=== PATIENT | male | born 1990 | race Caucasian/White ===

== ENCOUNTER 2020-03-29 13:25 | Emergency (ER) | payer BC, SELFPAY ==
[2020-03-29 13:41] VITALS: BP 130/75; PULSE 77; RESP 16; TEMP 36.9; O2SAT 100
--- NOTE | 2020-03-29 13:42 | ED.GENADULT ---
HPI - General Adult General Chief complaint: Eye Problems Stated complaint: swelling right eyelid Time Seen by Provider: 03/29/20 13:42 Source: patient and RN notes reviewed Mode of arrival: ambulatory Limitations: no limitations History of Present Illness HPI narrative: 29-year-old male presents with complaints of irritation, swelling, and redness to right upper eyelid for the past 2 days. No treatment. Increase swelling, redness, and irritation in the last 24 hours. Denies injury to RIGHT eye. No blurred vision, double vision, sensation of foreign body, or pain of eye with movement. [place] says his eye doctor was unable to evaluate him at this time. No drainage. Exacerbating factor consist of palpation of upper eyelid. Denies fever or chills. Tolerating po intake. Remains active. Denies headaches, weakness, fatigue, myalgia, or facial swelling. Denies chest pain or dyspnea. Denies cough, rhinorrhea, congestion, sore throat, nausea, vomiting, abdominal pain, and diarrhea. Tolerating po intake well. Denies recent traveling. Denies concerns for COVID-19 or exposures been home since [id number] order except for essential household needs, working, and return home. Some parts of this dictation were generated by voice recognition software and may contain typographical and/or grammatical inaccuracies. Related Data Home Medications Medication Instructions Recorded Confirmed cetirizine [Zyrtec] mg 03/29/20 Allergies Allergy/AdvReac Type Severity Reaction Status Date / Time No Known Allergies Allergy Verified 03/29/20 13:42 Review of Systems Review of Systems: Narrative: CONSTITUTIONAL: Denies fever, chills, sweats. EYES: Denies visual changes. Complains of RT upper eyelid with irritation, swelling, and redness. ENT: Denies rhinorrhea, congestion, sore throat, otalgia. CARDIOVASCULAR: Denies chest pain, palpitations, edema. RESPIRATORY: Denies dyspnea, wheezing, cough. GASTROINTESTINAL: Denies abdominal pain, nausea, vomiting, diarrhea. GENITOURINARY: Denies dysuria, hematuria, abnormal discharge. SKIN: Denies rash or itching. MUSCULOSKELETAL: Denies acute back pain, joint pain, or myalgia. NEUROLOGIC: Denies numbness or focal weakness. PSYCHIATRIC: Denies anxiety or depression. All systems reviewed and are unremarkable except as noted in HPI and below. FOR[facility], LATER [facility] Past Medical History Medical History (Updated 03/30/20 @ 00:00 by Ubaldo Kitchen) Allergies Surgical History Surgical History (Updated 03/29/20 @ 14:11 by MILKA Nick) History of nasal surgery Family History Family History (Updated 03/29/20 @ 14:13 by MILKA Nick) Father Hypertension Diabetes mellitus Mother Alive and well Sibling Multiple sclerosis Social History Social History (Updated 03/29/20 @ 14:11 by MILKA Nick) Smoking status: Never smoker Second hand tobacco smoke exposure: No Alcohol intake: current Substance use: never Living arrangements: with family Occupation/Education: occupation Gender identity (if verbalized by the patient): Male Comments At time of signature, I have reviewed and agree with nursing past medical, surgical, social, and family history. Please see nursing chart for further information. There is no relevant family history pertinent to the presenting complaint. Exam Narrative: Exam Narrative: GENERAL: This is a well-nourished, well-developed patient, in no apparent distress. Talks in full sentences and ambulates with steady gait without dyspnea. HEAD: normocephalic, atraumatic. EYES: Extraocular motions intact. PERRL. Sclera clear/white Bilaterally. No drainage. RT upper eyelid with mild-moderate swelling, erythema, tenderness on palpation. RT small internal Hordeolum @ 11 o'clock edge of upper eyelid. Vision is grossly intact. No drainable abscess. No foreign body or lesions were noted on eversion of upper eyelid. No concern for Saige-orbital cellul
== END 2020-03-29 14:06 | disposition home or self-care (01) ==
PROVIDERS: Emergency Provider Nurse Practitioner Family
DX: H00.021 Hordeolum internum right upper eyelid (principal)
CPT/HCPCS: 99213; G0463

== ENCOUNTER 2025-02-16 10:07 | Emergency (ER) | payer OTHER, SELFPAY ==
[2025-02-16] VITALS (8 sets, daily range): BP systolic 142; BP diastolic 79; PULSE 79–111; RESP 12–19; TEMP 36.2; O2SAT 96–99
--- NOTE | ~2025-02-16 | XR_ITS ---
CHEST RADIOGRAPH, PA AND LATERAL CLINICAL HISTORY: Cardiac arrhythmia . COMPARISON: None available TECHNIQUE: PA and lateral views of the chest. FINDINGS The cardiomediastinal silhouette is unremarkable. The lungs are clear. Visualized osseous structures and soft tissues are unremarkable. IMPRESSION: No focal infiltrate or effusion. Reviewed, dictated and finalized at location A.
--- NOTE | 2025-02-16 10:43 | ECG_ITS ---
Test Date: 2025-02-16 10:46:34 Measurements Intervals [place] Rate: 98 P: 59 OR: 132 QRS: 84 QRSD: 90 T: 39 QT: 311 QTc: 397 Interpretive Statements SINUS RHYTHM No previous ECG available for comparison Electronically Signed On 02-16-2025 13:36:04 CDT by Marichuy Howard M.D.
--- NOTE | 2025-02-16 11:16 | ED.GENADULT ---
HPI - General Adult General Chief complaint: Arrhythmia/Palpitations Stated complaint: palpatations Time Seen by Provider: 02/16/25 10:49 History of Present Illness HPI narrative: 34-year-old male presenting to the emergency department for evaluation for heart palpitations. Patient states intermittently he has been having heart palpitations at night. He states that he sometimes feels he is having a skipped heartbeat. Patient denies any significant past medical history. Patient denies history of coronary disease. Patient does not drink excessive amounts of caffeine. Patient denies any prior history of arrhythmia. Patient states he does not feel excessively stressed. Related Data Home Medications ?Medication ?Instructions ?Recorded ?Confirmed ?Last Taken ?Type cetirizine 10 mg tablet (Zyrtec) mg 03/29/20 Unknown History Allergies Allergy/AdvReac Type Severity Reaction Status Date / Time No Known Allergies Allergy Verified 03/29/20 13:42 Review of Systems Review of Systems: All systems reviewed & are unremarkable except as noted in HPI and below PMFSH Past Medical History Medical History (Updated 02/16/25 @ 13:14 by Liu Carlin MD) Allergies Surgical History Surgical History (Updated 03/29/20 @ 14:11 by MILKA Nick) History of nasal surgery Family History Family History (Updated 03/29/20 @ 14:13 by MILKA Nick) Father Hypertension Diabetes mellitus Mother Alive and well Sibling Multiple sclerosis Social History Social History (Updated 03/29/20 @ 14:11 by MILKA Nick) Smoking status: Never smoker Second hand tobacco smoke exposure: No Alcohol intake: current Substance use: never Living arrangements: with family Occupation/Education: occupation Gender identity (if verbalized by the patient): Male Exam Narrative: APPEARANCE: Well appearing, no pain, no distress, well-nourished. HEAD: normocephalic, atraumatic. EYES: PERRLA/EOMI, conjunctivae clear. NOSE: Normal no drainage EARS:TMS clear with good light reflex. THROAT: Pharynx clear, no exudate. NECK: Supple. No adenopathy, no masses. RESPIRATORY: Airway patent, respirations nonlabored. Clear to auscultation bilaterally, no rales, rhonchi, wheezing. CARDIOVASCULAR: Regular rate and rhythm without murmurs rubs or gallops. ABDOMINAL: Soft, nontender, nondistended, normal bowel sounds MUSCULOSKELETAL: Moves all extremities. Strength/ROM intact, No edema, No calf tenderness. NEURO: Alert. Cranial nerves II through XII intact. Grossly intact SKIN: Warm, dry. Normal Color Course Vital Signs Vital signs: Vital Signs Temperature 97.1 F L 02/16/25 10:07 Pulse Rate 111 H 02/16/25 10:07 Respiratory Rate 16 02/16/25 10:07 Blood Pressure 142/79 H 02/16/25 10:07 Pulse Oximetry 99 02/16/25 10:07 Temperature 97.1 F L 02/16/25 10:07 Pulse Rate 94 02/16/25 13:15 Respiratory Rate 14 02/16/25 13:15 Blood Pressure 142/79 H 02/16/25 10:07 Pulse Oximetry 99 02/16/25 13:15 Medical Decision Making MDM Narrative Medical decision making narrative: 34-year-old male present to the emergency department for evaluation for intermittent heart palpitations. Patient is currently not tachycardic. Patient has a normal sinus rhythm on the EKG. Patient is afebrile with no leukocytosis and hemoglobin of 15. INR 0.9 D-dimer is not elevated. Patient has no abnormalities on his CMP TSH and Mag are within normal limits. Patient is asymptomatic in the emergency department. Patient will be discharged home with instructions to follow-up with primary care physician and a Holter monitor will be ordered. Patient was updated the results of his workup he was comfortable plan for discharge and close follow-up. Differential Diagnosis Differential Diagnosis: Dehydration, pulmonary embolism, tachycardia, atrial fibrillation, SVT, anxiety Vital Signs Vital Signs: Vital Signs Temperature 97.1 F L 02/16/25 10:07 Pulse Rate 111 H 02/16/25 10:07 Respiratory Rate 16 02/16/25 10:07 Blood Pressure 142/79 H 02/16/25 10:07 Pulse Oximetry 99 02/16/25 10:07 Temperature 97.1 F L 02/16/25 10:07 Pulse Rate 94 02/16/25 13:15 Respiratory Rate 14 02/16/25 13:15 Blood Pressure 142/79 H 02/16/25 10:07 Pulse Oximetry 99 02/16/25 13:15 Lab Data Lab results reviewed: Yes I reviewed the patient's lab results. 02/16/25 11:26 02/16/25 11:26 Labs: Lab Results 02/16/25 Range/Units 11:26 WBC 6.8 (4.5-10.0) K/mm3 RBC 4.96 (4.6-6.20) M/mm3 Hgb 15.0 (14.0-18.0) g/dL Hct 44.8 (42.0-52.0) % MCV 90.3 (80-100) fl MCH 30.2 (26-34) pg MCHC 33.5 (32-36) g/dl RDW 13.0 (11.5-14.5) % Plt Count 183 (150-375) k/mm3 MPV 11.2 H (7.4-10.4) fl Immature Gran % (Auto) 0.9 H (0-0.5) % Neut % (Auto) 77.2 H (45.5-73.1) % Lymph % (Auto) 13.5 L (18.3-44.2) % [place] % (Auto) 6.2 (2.6-8.5) % Eos % (Auto) 1.5 (0-4.4) % Baso % (Auto) 0.7 (0.2-1.2) % Lymph # (Auto) 0.91 (0.9-3.2) K/mm3 [place] # (Auto) 0.4 (0.1-0.6) K/mm3 Eos # (Auto) 0.1 (0-0.3) K/mm3 Baso # (Auto) 0.1 (0.0-0.1) K/mm3 Abs Immat Gran (auto) 0.06 H (0.00-0.031) K/mm3 Absolute Neuts (auto) 5.2 (1.3-6.7) K/mm3 Absolute Nucleated RBC 0.000 (0.0-0.012) K/mm3 Nucleated RBC % 0.0 (0.0-0.2) % PT 12.8 (11.1-14.7) Seconds INR 0.9 APTT 27.7 (22.3-36.8) Seconds D-Dimer < 0.27 (<0.48) ug/mL Sodium 140 (137-145) mmol/L Potassium 4.0 (3.4-5.0) mmol/L Chloride 106 (98-107) mmol/L Carbon Dioxide 23 (22-30) mmol/L Anion Gap 11 (4-12) mmol/L BUN 10 (9-20) mg/dL Creatinine 0.63 L (0.7-1.3) mg/dL Estim Creat Clear Calc 129 ml/min Estimated GFR > 60 (59 - ) Glucose 125 H (65-110) mg/dL Calcium 9.5 (8.4-10.2) mg/dL Magnesium 2.0 (1.6-2.3) mg/dL Total Bilirubin 0.9 (0.2-1.3) mg/dL AST 25 (17-59) U/L ALT 19 (6-50) U/L Alkaline Phosphatase 63 (38-126) U/L Total Protein 8.0 (6.3-8.2) g/dL Albumin 4.9 (3.5-5.1) g/dL TSH (Reflex) 2.380 (0.465-4.68) uIU/mL Imaging Data Radiologist's impression: Impressions Chest X-Ray 02/16/25 11:59 IMPRESSION: No focal infiltrate or effusion. Discharge Plan Discharge Clinical Impression: Palpitations Patient Disposition: Home, Self-Care Condition: Stable Instructions: Antibiotic Form, Heart Palpitations (ED) Additional Instructions: Continue to drink plenty of fluids, avoid excessive amounts of caffeine. Avoid alcohol. Holter monitor as directed. Have close follow-up with a primary care physician. If you have any worsening symptoms then please call or return to the emergency department. Patient Language: Romanian Prescriptions: No Action cetirizine [Zyrtec] 10 mg Tablet clindamycin HCl 300 mg capsule 300 mg PO Q8H 10 Days Qty: 30 0RF Other Ambulatory Orders: [place] holter monitor 3-7 day (Routine) Timeframe: 1 Day Location: Determined by Patient Ordered By: Liu Carlin Follow-up/Referrals: PHYSICIAN,[employer]IP[employer] CREWMEMBER [Primary Care Provider] - Gagan Anna MD [Physician] -
[2025-02-16 11:42] LABS: Basophils Absolute Auto 0.1 K/mm3 (0.0-0.1); Basophils Percent Auto 0.7 % (0.2-1.2); Eosinophils Absolute Auto 0.1 K/mm3 (0-0.3); Eosinophils Percent Auto 1.5 % (0-4.4); Hematocrit 44.8 % (42.0-52.0); Immature Granulocyte Absolute 0.06 K/mm3 (0.00-0.031); Immature Granulocyte Percent A 0.9 % (0-0.5); Lymphocytes Absolute Auto 0.91 K/mm3 (0.9-3.2); Lymphocytes Percent Auto 13.5 % (18.3-44.2); Mean Corpuscular HGB Conc 33.5 g/dl (32-36); Mean Corpuscular Hemoglobin 30.2 pg (26-34); Mean Corpuscular Volume 90.3 fl (80-100); Mean Platelet Volume 11.2 fl (7.4-10.4); Monocytes Absolute Auto 0.4 K/mm3 (0.1-0.6); Monocytes Percent Auto 6.2 % (2.6-8.5); Neutrophils Absolute Auto 5.2 K/mm3 (1.3-6.7); Neutrophils Percent Auto 77.2 % (45.5-73.1); Platelet Count Result 183 k/mm3 (150-375); Red Blood Count 4.96 M/mm3 (4.6-6.20); White Blood Count 6.8 K/mm3 (4.5-10.0)
[2025-02-16 11:46] LABS: Alanine Aminotransferase 19 U/L (6-50); Albumin Level 4.9 g/dL (3.5-5.1); Alkaline Phosphatase 63 U/L (38-126); Anion Gap 11 mmol/L (4-12); Aspartate Amino Transferase 25 U/L (17-59); Bilirubin,Total 0.9 mg/dL (0.2-1.3); Blood Urea Nitrogen 10 mg/dL (9-20); Calcium 9.5 mg/dL (8.4-10.2); Carbon Dioxide 23 mmol/L (22-30); Chloride 106 mmol/L (98-107); Estimated CRCL calculation 129 ml/min; Estimated Glomerular Filt Rate > 60; Glucose 125 mg/dL (65-110); Sodium 140 mmol/L (137-145)
[2025-02-16 11:49] LABS: INR 0.9; Prothrombin Time 12.8 Seconds (11.1-14.7)
[2025-02-16 11:50] LABS: Partial Thromboplastin Time 27.7 Seconds (22.3-36.8)
[2025-02-16 11:52] LABS: D Dimer < 0.27 ug/mL (<0.48)
--- NOTE | 2025-02-16 14:00 | PC.NURSE ---
Patient waiting for Holter monitor to be placed before being discharged home
== END 2025-02-16 14:30 | disposition home or self-care (01) ==
PROVIDERS: Emergency Provider Emergency Medicine
DX: R00.2 Palpitations (principal)
CPT/HCPCS: 36415; 71046; 80053; 83735; 84443; 85025; 85380; 85610; 85730; 93005; 93242; 99283

== ENCOUNTER 2025-08-30 22:40 | Emergency (ER) | payer OTHER, SELFPAY ==
--- NOTE | ~2025-08-30 | XR_ITS ---
Examination: XR chest 2V Clinical History: chest pain Comparison: 02/16/2025 Technique: PA and Lateral Findings: Cardiomediastinal silhouette normal size and configuration. Lungs clear. No acute bony abnormality. IMPRESSION: 1. No acute cardiopulmonary findings. Reviewed, dictated and finalized at location R.
--- NOTE | 2025-08-30 22:49 | ECG_ITS ---
Test Date: 2025-08-30 22:54:46 Measurements Intervals [place] Rate: 88 P: 61 RI: 146 QRS: 69 QRSD: 93 T: 42 QT: 324 QTc: 393 Interpretive Statements SINUS RHYTHM NORMAL ECG Compared to ECG 02/16/2025 10:46:34 No significant changes Electronically Signed On 08-31-2025 08:10:02 CDT by Luis Jensen D.O.
[2025-08-30 23:07] VITALS: BP 137/91; PULSE 92; RESP 18; TEMP 36.7; O2SAT 99
[2025-08-31] VITALS (15 sets, daily range): BP systolic 108–120; BP diastolic 70–80; PULSE 62–79; RESP 10–17; O2SAT 95–99
[2025-08-31 01:01] LABS: Hematocrit 44.5 % (42.0-52.0); Hemoglobin 15.0 g/dL (14.0-18.0); Immature Granulocyte Percent A 0.4 % (0-0.5); Lymphocytes Absolute Auto 2.30 K/mm3 (0.9-3.2); Mean Corpuscular HGB Conc 33.7 g/dl (32-36); Mean Corpuscular Hemoglobin 30.2 pg (26-34); Mean Corpuscular Volume 89.5 fl (80-100); Nucleated Red Blood Cells Absolute Auto 0.000 K/mm3 (0.0-0.012); Nucleated Red Blood Cells Perc 0.0 % (0.0-0.2); Platelet Count Result 244 k/mm3 (150-375); Red Blood Count 4.97 M/mm3 (4.6-6.20); White Blood Count 8.9 K/mm3 (4.5-10.0)
[2025-08-31 01:08] LABS: Alanine Aminotransferase 20 U/L (6-50); Albumin Level 5.0 g/dL (3.5-5.1); Alkaline Phosphatase 67 U/L (38-126); Anion Gap 8 mmol/L (4-12); Aspartate Amino Transferase 31 U/L (17-59); Bilirubin,Total 1.3 mg/dL (0.2-1.3); Blood Urea Nitrogen 11 mg/dL (9-20); Calcium 9.3 mg/dL (8.4-10.2); Carbon Dioxide 24 mmol/L (22-30); Chloride 105 mmol/L (98-107); Estimated Glomerular Filt Rate > 60; Glucose 96 mg/dL (65-110); Lipase 111 U/L (23-300); Potassium 4.0 mmol/L (3.4-5.0); Sodium 137 mmol/L (137-145); Total Protein 8.4 g/dL (6.3-8.2)
[2025-08-31 01:19] LABS: Troponin I < 0.012 ng/mL (0.000-0.034)
[2025-08-31 01:21] LABS: INR 1.0; Prothrombin Time 13.2 Seconds (11.1-14.7)
[2025-08-31 01:22] LABS: Partial Thromboplastin Time 31.8 Seconds (22.3-36.8)
[2025-08-31 01:39] LABS: Thyroid Stimulating Hormone Reflex 5.930 uIU/mL (0.465-4.68)
[2025-08-31 02:25] LABS: Free T4 Free Thyroxine Reflex 0.79 ng/dL (0.78-2.19)
[2025-08-31 03:10] LABS: Total Triiodothyronine (T3) 1.20 NG/ML (0.82-1.58)
--- NOTE | 2025-08-31 03:47 | ECG_ITS ---
Test Date: 2025-08-31 03:20:24 Measurements Intervals [place] Rate: 75 P: 64 [place]: 163 QRS: 79 QRSD: 86 T: 54 QT: 350 QTc: 392 Interpretive Statements SINUS RHYTHM BASELINE ARTIFACT- V4-V6 NORMAL ECG Compared to ECG 08/30/2025 22:54:46 No significant changes Electronically Signed On 08-31-2025 08:20:39 CDT by Luis Jensen D.O.
--- NOTE | 2025-08-31 03:56 | ED_ITS ---
HPI - Arrhythmia/Palpitations General Chief Complaint: Arrhythmia/Palpitations Stated Complaint: heart racing all day Time Seen by Provider: 08/31/25 03:20 Source: patient Mode of arrival: ambulatory Limitations: no limitations History of Present Illness HPI narrative: Patient presents initially with report of a sensation that his heart has been racing all day however he denies palpitations and says at times it seems like he has been missing beats but Denies any irregular heart beat. States it is hard to describe. He has mainly been checking his heart rate by feeling his pulse and states that it has been 100-110 thoughout the day including while playing golf. However, he notes that this seemed to go away while in the emergency department. He has difficulty sleeping the serosal and states that his symptoms seem to be worse when he is lying flat. Says his breathing feels off, also hard to describe. Had stated in triage that it felt like he was unable to take a satisfying breath. Has developed a headache while in the emergency department. He notes a tingling sensation in his head/scalp. Patient had similar symptoms previously and more Holter/event monitor. He denies any chest pain. He does not currently have a primary care physician. He had been having some lightheadedness which he describes as mild as well as some weakness which he describes as mild. He does not follow regularly with a program support clerk. Denies shortness of breath, cough, fevers or chills. Related Data Home Medications ?Medication ?Instructions ?Recorded ?Confirmed ?Last Taken ?Type cetirizine 10 mg tablet (Zyrtec) mg 03/29/20 Unknown History Allergies Allergy/AdvReac Type Severity Reaction Status Date / Time No Known Allergies Allergy Verified 08/31/25 03:22 [facility] Past Medical History Medical History Allergies Surgical History Surgical History History of nasal surgery Family History Family History Father Hypertension Diabetes mellitus Mother Alive and well Sibling Multiple sclerosis Social History Social History (Updated 03/29/20 @ 14:11 by MILKA Nick) Smoking status: Never smoker Second hand tobacco smoke exposure: No Alcohol intake: current Substance use: never Living arrangements: with family Occupation/Education: occupation Gender identity (if verbalized by the patient): Male Exam 2 Narrative: GENERAL: Well-appearing, well-nourished, and in no acute distress. HEAD: Normocephalic, atraumatic. EYES: Non injected, non icteric ENT: Nares clear, no rhinorrhea or epistaxis. Gross auditory acuity intact. NECK: Supple. No meningismus. CHEST: Speaking in full sentences. No respiratory distress. Lungs clear to auscultation bilaterally without appreciable wheezes or crackles. HEART: Regular rate and rhythm. Notably not tachycardic. ABDOMEN: Soft, nondistended. No rigidity or guarding. Not peritoneal EXTREMITIES: Normal range of motion. SKIN: Warm, dry, no rash. NEURO: No focal deficits. Alert and oriented. Answering questions. Following commands. Normal speech without aphasia or dysarthria. PSYCH: Congruent mood and affect. Course Vital Signs Vital signs: Vital Signs Temperature 98.1 F 08/30/25 23:07 Pulse Rate 92 08/30/25 23:07 Respiratory Rate 18 08/30/25 23:07 Blood Pressure 137/91 H 08/30/25 23:07 Pulse Oximetry 99 08/30/25 23:07 Oxygen Delivery Room Air 08/30/25 23:07 Temperature 98.1 F 08/30/25 23:07 Pulse Rate 79 08/31/25 07:14 Respiratory Rate 17 08/31/25 07:14 Blood Pressure 108/70 08/31/25 07:14 Pulse Oximetry 98 08/31/25 07:14 Oxygen Delivery Room Air 08/30/25 23:07 MDM - Arrhythmia/Palpitations MDM Narrative Medical decision making narrative: Patient presents with vague and hard to describe symptoms as at times he reports a sensation that his heart has been racing all day but then notes that he has not been having palpitations and says that he feels like he has been having missing beats but denies any irregular heartbeat. In general he states that he has been frequently checking his heart rate on palpation his radial pulse and has been getting 100-110bpm. Also notes the does not feel short of breath but feels like he has difficulty sleeping as his symptoms are worse when lying flat and that his breathing feels off, not taking a satisfying breath. In the emergency department he is afebrile acceptable vital signs. TSH abnormal. T3 and T4 ordered. T4 within normal limits (though low-normal). Suspect subclinical hypothyroidism. T3 a send out lab. CBC with mild abnormalities on the differential but otherwise without leukocytosis, anemia, thrombocytopenia. Chemistry unremarkable. Two normal troponins. D-dimer is within normal limits. Viral swab negative. Unclear etiology for patient's symptoms and he has already been seen for the same in January of 2025 and status post Holter monitor in February of 2025, see below. No emergent etiology has been identified. I did advise outpatient follow-up and patient has otherwise been stable. He was provided contact information for primary care physician as he does not have 1 as well as contact information/referral for Cardiology. Differential Diagnosis Differential diagnosis: Likely palpitations, anxiety, sinus tachycardia, artial fibrillation, artial flutter, ventricular premature beats, supraventricular tachycardia, ventricular tachycardia and WPW Medical Records Attestation: I reviewed the patient's medical records. Medical records narrative: Seen for the same in the ED in January 2025; Holter monitor February 2025 Conclusion: 1. 7 days holter monitor on 02/16/25. 2. Predominant rhythm is sinus rhythm. HR range 50-143 bpm; average HR 79 bpm. HR at 143 bpm was on 02/16/25 at 7:49 pm. 3. There are rare premature supraventricular complexes. There is 1 episode of supraventricular tachycardia with aberrancy at 115 bpm lasting 6 beats on 02/17/25 at 12:24 pm. 4. There are rare premature ventricular complexes and rare ventricular couplets. No ventricular tachycardia. 5. No significant pauses greater than 3 seconds. 6. Patient reports 8 episodes of symptoms of irregular beats, racing, shortness of breath which demonstrate sinus rhythm, HR range 73-100 bpm with 1 episode with PAC and 2 episodes with PVC. Lab Data Attestation: I reviewed the patient's lab results. 08/31/25 00:47 08/31/25 00:47 Labs: Lab Results 08/31/25 08/31/25 08/31/25 Range/Units 00:47 03:23 05:19 WBC 8.9 (4.5-10.0) K/mm3 RBC 4.97 (4.6-6.20) M/mm3 Hgb 15.0 (14.0-18.0) g/dL Hct 44.5 (42.0-52.0) % MCV 89.5 (80-100) fl MCH 30.2 (26-34) pg MCHC 33.7 (32-36) g/dl RDW 12.8 (11.5-14.5) % Plt Count 244 (150-375) k/mm3 MPV 10.6 H (7.4-10.4) fl Immature Gran % (Auto) 0.4 (0-0.5) % Neut % (Auto) 63.1 (45.5-73.1) % Lymph % (Auto) 25.8 (18.3-44.2) % [place] % (Auto) 7.4 (2.6-8.5) % Eos % (Auto) 2.5 (0-4.4) % Baso % (Auto) 0.8 (0.2-1.2) % Lymph # (Auto) 2.30 (0.9-3.2) K/mm3 [place] # (Auto) 0.7 H (0.1-0.6) K/mm3 Eos # (Auto) 0.2 (0-0.3) K/mm3 Baso # (Auto) 0.1 (0.0-0.1) K/mm3 Abs Immat Gran (auto) 0.04 H (0.00-0.031) K/mm3 Absolute Neuts (auto) 5.6 (1.3-6.7) K/mm3 Absolute Nucleated RBC 0.000 (0.0-0.012) K/mm3 Nucleated RBC % 0.0 (0.0-0.2) % PT 13.2 (11.1-14.7) Seconds INR 1.0 APTT 31.8 (22.3-36.8) Seconds D-Dimer < 0.27 (<0.48) ug/mL Sodium 137 (137-145) mmol/L Potassium 4.0 (3.4-5.0) mmol/L Chloride 105 (98-107) mmol/L Carbon Dioxide 24 (22-30) mmol/L Anion Gap 8 (4-12) mmol/L BUN 11 (9-20) mg/dL Creatinine 0.74 (0.7-1.3) mg/dL Estim Creat Clear Calc Not Reportable Estimated GFR > 60 (59 - ) Glucose 96 (65-110) mg/dL Calcium 9.3 (8.4-10.2) mg/dL Magnesium 2.2 (1.6-2.3) mg/dL Total Bilirubin 1.3 (0.2-1.3) mg/dL AST 31 (17-59) U/L ALT 20 (6-50) U/L Alkaline Phosphatase 67 (38-126) U/L Troponin I < 0.012 < 0.012 (0.000-0.034) ng/mL Total Protein 8.4 H (6.3-8.2) g/dL Albumin 5.0 (3.5-5.1) g/dL Lipase 111 (23-300) U/L TSH (Reflex) 5.930 H (0.465-4.68) uIU/mL Free T4 0.79 (0.78-2.19) ng/dL Free T3 pg/mL Pending Total T3 1.20 (0.82-1.58) NG/ML Influenza A (RT-PCR) Negative (Negative) Influenza B (RT-PCR) Negative (Negative) RSV (RT-PCR) Negative (Negative) SARS-CoV-2 RNA (RT-PCR) Negative (Negative) Imaging Data Attestation: I personally reviewed and interpreted this imaging study as follows: My impression: Two-view chest x-ray shows no acute intrathoracic process on my independent interpretation ECG Data EKG #1: Attestation: I personally reviewed and interpreted this ECG as follows: ECG completion date: 08/30/25 ECG completion time: 22:54 Interpretation: Normal sinus rhythm at a rate of 80 beats per minute. [place] interval 146. QRS 93. QT/QTC 324/393. Good R-wave progression across the precordial leads. Normal axis. No T-wave inversions. Normal ECG. EKG #2: Attestation: I personally reviewed and interpreted this ECG as follows: ECG completion date: 08/31/25 ECG completion time: 03:20 Interpretation: Normal sinus rhythm at a rate of 75 beats per minute. [place] interval 163. QRS 86. QT/QTC 350/392. Good R-wave progression across the precordial leads. Normal axis. No T-wave inversions. Normal ECG. Discharge Plan Discharge Clinical Impression: Subclinical hypothyroidism, Racing heart beat Patient Disposition: Home Condition: Stable Instructions: Antibiotic Form, Heart Palpitations (ED), Subclinical Hypothyroidism (ED) Additional Instructions: Recommend following up with a primary care physician. Because you do not have 1, the name of the doctors listed below. They may recommend alternative/additional workup and or referral to Cardiology since this has happened before. The name of a program support clerk is listed below if needed. Your workup otherwise did not reveal a cause of your symptoms and your heart rate has been appropriate while here. Return if any new or worsening symptoms. Patient Language: Bahraini Prescriptions: No Action cetirizine [Zyrtec] 10 mg Tablet clindamycin HCl 300 mg capsule 300 mg PO Q8H 10 Days Qty: 30 0RF Follow-up/Referrals: Noah Zamorano MD [Physician, Family Practice] Referral Note: PCP PHYSICIAN,DIRECTOR BUSINESS [Primary Care Provider, Internal Medicine] Scar Crawford MD [Physician, Cardiology] Stand Alone Forms: Work/School Release IP Time of Disposition: 07:00
[2025-08-31 03:59] LABS: Troponin I < 0.012 ng/mL (0.000-0.034)
[2025-08-31 04:43] LABS: Magnesium 2.2 mg/dL (1.6-2.3)
[2025-08-31 06:28] LABS: Influenza A QL RT-PCR Negative (Negative); Influenza B QL RT-PCR Negative (Negative); RSV RNA, RT-PCR Negative (Negative); SARS-CoV-2 RNA PCR Negative (Negative)
[2025-09-01 11:08] LABS: Triiodothyronine (T3), Free 3.7 pg/mL (2.0-4.4)
== END 2025-08-31 07:19 | disposition home or self-care (01) ==
PROVIDERS: Emergency Provider Student in an Organized Health Care Education/Training Program
DX: E03.9 Hypothyroidism, unspecified (principal); R00.0 Tachycardia, unspecified; Z20.822 Contact with and (suspected) exposure to COVID-19
CPT/HCPCS: 36415; 71046; 80053; 83690; 83735; 84439; 84443; 84480; 84481; 84484; 85025; 85380; 85610; 85730; 87637; 93005; 99284